=== PATIENT | male | born 1975 | race Caucasian/White ===

== ENCOUNTER 2020-09-25 18:07 | Emergency (ER) | payer BC ==
[2020-09-25] MEDS ORDERED: Ketorolac 60 MG/2 ML SDV IM ONE (19:10)
--- NOTE | 2020-09-25 19:17 | EDM.PDOC ---
ED HPI GENERAL MEDICAL PROBLEM - General Chief Complaint: Lower Extremity Injury/Pain Stated Complaint: LEFT FOOT SWOLLEN, PAIN Time Seen by Provider: 09/25/20 18:30 Source of Information: Reports: Patient History Limitations: Reports: No Limitations - History of Present Illness INITIAL COMMENTS - FREE TEXT/NARRATIVE: 45-year-old male who was having left foot pain in the MP joint for the past 2 weeks. He was seen a week ago in the clinic, diagnosed with gout and started on a course of prednisone. It did markedly improve while on prednisone but it gave him significant chest symptoms and made him uncomfortable. He has been done with prednisone for the last 2 days and the symptoms around the toe are just as bad or worse than when it started. No other complaints. No fevers or chills, no trauma. Onset: Gradual Duration: Week(s): (2 weeks) Location: Reports: Lower Extremity, Left (First MP joint) Associated Symptoms: Reports: No Other Symptoms Left Foot Pain Score (Numeric/FACES): 9 - Related Data Allergies Allergy/AdvReac Type Severity Reaction Status Date / Time Penicillins Allergy Other Verified 09/25/20 18:22 Home Meds: Home Meds Gabapentin [Neurontin] 300 mg PO TID 09/25/20 [History] Omeprazole 40 mg PO DAILY 09/25/20 [History] atorvaSTATin [Lipitor] 80 mg PO BEDTIME 09/25/20 [History] lisinopriL [Lisinopril] 40 mg PO DAILY 09/25/20 [History] Past Medical History HEENT History: Reports: Impaired Vision Cardiovascular History: Reports: High Cholesterol, Hypertension, DC Musculoskeletal History: Reports: Back Pain, Chronic Endocrine/Metabolic History: Reports: Obesity/BMI 30+ - Past Surgical History Head Surgeries/Procedures: Reports: None HEENT Surgical History: Reports: None Cardiovascular Surgical History: Reports: None Endocrine Surgical History: Reports: None Musculoskeletal Surgical History: Reports: None Dermatological Surgical History: Reports: None Social & Family History - Tobacco Use Used Tobacco, but Quit: No Second Hand Smoke Exposure: No - Caffeine Use Caffeine Use: Reports: Coffee - Recreational Drug Use Recreational Drug Use: No Review of Systems - Review of Systems Review Of Systems: See Below Constitutional: Denies: Fever Cardiovascular: Reports: Other (Had some chest tightness and discomfort with the prednisone, those symptoms are resolved) Skin: Reports: Erythema (Erythema around the MP joint of the left foot large toe ) Neurological: Reports: No Symptoms Psychiatric: Reports: No Symptoms ED EXAM, GENERAL - Physical Exam Exam: See Below Exam Limited By: No Limitations General Appearance: Alert, No Apparent Distress Head: Atraumatic Respiratory/Chest: No Respiratory Distress Extremities: Other (Left first MP joint is reddened, slightly swollen and extremely tender to palpation or any passive range of motion of the MP joint. Slightly warm to touch.) Course - Vital Signs Last Recorded V/S: Last Vital Signs Temp 97.9 F 09/25/20 18:30 Pulse 79 09/25/20 18:30 Resp 17 09/25/20 18:30 BP 147/88 H 09/25/20 18:30 Pulse Ox 96 09/25/20 18:30 - Orders/Labs/Meds Orders: Active Orders 24 hr Category Date Time Status Foot Comp Min 3V Lt [CR] Stat Exams 09/25/20 18:46 Taken Meds: Medications Discontinued Medications Generic Name Dose Route Start Last Admin Trade Name Neo PRN Reason Stop Dose Admin Ketorolac Tromethamine 60 mg 09/25/20 19:10 09/25/20 19:26 Toradol IM 09/25/20 19:11 60 mg ONETIME ONE Administration - Re-Assessments/Exams Free Text/Narrative Re-Assessment/Exam: 09/25/20 19:15 An x-ray of the left foot was obtained that showed just minimal arthritis of the MP joint, no cystic lesions or tophi. I did discuss his situation with Dr. Estrada, podiatry who recommended Toradol and a recheck tomorrow for an intra-art icular injection of steroid. Patient is comfortable with this plan. He was given 60 mg of IM Toradol and 10 doses of 10 mg Toradol to take 3 times a day. If he has significant improvement overnight he may elect to finish the Toradol instead of getting an injection which he is very scared of. Departure - Departure Time of Disposition: 19:33 Disposition: Home, Self-Care 01 Clinical Impression: Gout of left foot Qualifiers: Gout etiology: unspecified cause Chronicity: acute Qualified Code(s): M10.9 - Gout, unspecified - Discharge Information Instructions: Foot Pain Referrals: PCP,None [Primary Care Provider] - Forms: ED Department Discharge Care Plan Goals: Take 1 dose of Toradol 3 times a day starting tomorrow morning, and increase activity as tolerated. Do not ice the joint, keeping it warm would be beneficial. Recheck with Dr. Sherman at the clinic tomorrow, call at 9 AM for an appointment time. Clinic for appointment [phone] Sepsis Event Note (ED) - Evaluation Sepsis Screening Result: No Definite Risk - Focused Exam Vital Signs: Vital Signs Temp Pulse Resp BP Pulse Ox 09/25/20 18:30 97.9 F 79 17 147/88 H 96 09/25/20 18:23 97.9 F 79 17 147/88 H 96 - My Orders Last 24 Hours: My Active Orders 09/25/20 18:46 Foot Comp Min 3V Lt [CR] Stat - Assessment/Plan Last 24 Hours: My Active Orders 09/25/20 18:46 Foot Comp Min 3V Lt [CR] Stat
--- NOTE | 2020-09-26 09:18 | CR ---
FOOT LEFT 3 views CLINICAL HISTORY:Pain first toe FINDINGS:There are mild osteoarthritic changes at the first MTP and IP joints. There are moderate hammertoe deformities throughout. There are no fractures or osseous lesions. IMPRESSION: Osteoarthritic changes first toe
== END 2020-09-25 19:41 | disposition home or self-care (01) ==
LOC: JP.ED 18:07
DX: M10.9 Gout, unspecified (principal); E78.00 Pure hypercholesterolemia, unspecified; I10 Essential (primary) hypertension; I25.2 Old myocardial infarction; E66.9 Obesity, unspecified; Z68.31 Body mass index [BMI] 31.0-31.9, adult; Z79.82 Long term (current) use of aspirin; Z79.899 Other long term (current) drug therapy; Z88.0 Allergy status to penicillin
CPT/HCPCS: 73630; 96372; 99283; J1885